=== PATIENT | male | born 1985 | race African-American/Black ===

== ENCOUNTER 2017-09-23 22:20 | Emergency (ER) | payer SELFPAY ==
[~2017-09-23] VITALS: Ht 175.3 cm; Wt 99.8 kg
[2017-09-23 22:40] VITALS: BP_SYST 143
[2017-09-23] MEDS ORDERED: ASPIRIN 81 MG TAB.CHEW PO ONE (22:45)
[2017-09-23 23:17] LABS: EOSINOPHILS # (AUTO) 0.1 K/uL (0.0-0.4); EOSINOPHILS % (AUTO) 0.9 % (0.0-4.0); HEMATOCRIT 39.2 % (36-54); HEMOGLOBIN 12.8 g/dL (14.0-18.0); LYMPHOCYTES # (AUTO) 0.4 K/uL (1.0-5.5); LYMPHOCYTES % (AUTO) 4.3 % (20.5-51.5); MEAN CORPUSCULAR HEMOGLOBIN 26 pg (27-31); MEAN CORPUSCULAR HGB CONC 33 % (32-36); MEAN CORPUSCULAR VOLUME 80 fL (79.0-98.0); MONOCYTES % (AUTO) 0.3 % (1.7-9.3); NEUTROPHILS # (AUTO) 7.7 K/uL (1.8-7.7); NEUTROPHILS % (AUTO) 94.5 % (40.0-70.0); PLATELET COUNT (AUTO) 450 K/uL (130-430); RED BLOOD CELL COUNT(AUTO) 4.88 MIL/uL (4.2-6.2); RED CELL DISTRIBUTION WIDTH 13.2 % (9.0-15.0); WHITE BLOOD COUNT (AUTO) 8.2 K/uL (4.8-10.8)
[2017-09-23 23:27] LABS: CALCIUM 9.1 mg/dL (8.4-11.0); CREATININE 0.97 mg/dL (0.55-1.30); POTASSIUM 4.3 mmol/L (3.5-5.1)
[2017-09-23 23:31] LABS: ALBUMIN 3.9 g/dL (3.4-4.8); TOTAL BILIRUBIN 0.2 mg/dL (0.0-1.0)
[2017-09-24] MEDS ORDERED: CYCL-10 PO (00:54)
[2017-09-24] MEDS ORDERED: TRAM50TA92 PO (00:54)
[2017-09-24] MEDS ORDERED: PRO40 PO (00:54)
[2017-09-24] MEDS ORDERED: KETO10TA2 PO (00:54)
[2017-09-24] MEDS ORDERED: METH750T3 PO (00:54)
[2017-09-24] MEDS ORDERED: ACET325T53 PO (00:54)
[2017-09-24] MEDS ORDERED: HYDR-4100 PO (00:54)
[2017-09-24] MEDS ORDERED: NAPR220C15 PO (00:54)
[2017-09-24] MEDS ORDERED: GABA800T PO (00:54)
[2017-09-24] MEDS ORDERED: BEN50 PO (00:54)
[2017-09-24] MEDS ORDERED: ALBU8.5H8 INH (00:54)
[2017-09-24] MEDS ORDERED: PERC10 PO (00:54)
[2017-09-24] MEDS ORDERED: MORP30TA PO (00:54)
[2017-09-24] MEDS ORDERED: IND25 PO (00:54)
[2017-09-24] MEDS ORDERED: ALBU2.5V7 INH (00:54)
[2017-09-24 01:01] LABS: BILIRUBIN,URINE NEGATIVE (NEGATIVE); BLOOD, URINE NEGATIVE (NEGATIVE); CLARITY/URINE CLEAR (CLEAR); COLOR,URINE YELLOW (YELLOW); GLUCOSE,URINE NEGATIVE (NEGATIVE); KETONES,URINE NEGATIVE (NEGATIVE); LEUKOCYTE ESTERASE ,URINE NEGATIVE (NEGATIVE); NITRITE, URINE NEGATIVE (NEGATIVE); PROTEIN URINE NEGATIVE (NEGATIVE)
[2017-09-24 01:11] LABS: BARBITURATE, URINE NEGATIVE (NEG <=200); BENZODIAZEPINE, URINE NEGATIVE (NEG <=150); CANNABINOID, URINE NEGATIVE (NEG <=50); COCAINE, URINE NEGATIVE (NEG <=150); METHAMPHETAMINES SCREEN,URINE NEGATIVE (NEG <=500); OPIATE, URINE POSITIVE (NEG <=100); PHENCYCLIDINE SCREEN,URINE NEGATIVE (NEG <=25); UR TRICYCLIC ANTIDEPRESSANTS NEGATIVE (NEG <=300); URINE AMPHETAMINE NEGATIVE (NEG <=500); URINE METHADONE NEGATIVE (NEG <=200); URINE OXYCODONE SCREEN NEGATIVE (NEG <=100); URINE PROPOXYPHENE SCREEN NEGATIVE (NEG <=300)
[2017-09-24] MEDS ORDERED: METH40VI IJ (01:15)
[2017-09-24] MEDS ORDERED: ADAL40KI SQ (01:15)
[2017-09-24] MEDS ORDERED: INSU100V32 SUBCUT (01:15)
[2017-09-24] MEDS ORDERED: DIVA500T4 PO (01:15)
[2017-09-24] MEDS ORDERED: WARF4TAB2 PO (01:15)
[2017-09-24] MEDS ORDERED: ESOM40CA PO (01:15)
[2017-09-24] MEDS ORDERED: AZIT500T3 PO (01:15)
[2017-09-24] MEDS ORDERED: HEPA500014 SUBCUT (01:15)
[2017-09-24 01:42] VITALS: BP_SYST 133
== END 2017-09-24 01:42 | disposition home or self-care (01) ==
LOC: SED 22:20
DX: R07.89 Other chest pain (principal); F43.10 Post-traumatic stress disorder, unspecified; F41.9 Anxiety disorder, unspecified; I25.2 Old myocardial infarction; Z79.899 Other long term (current) drug therapy
CPT/HCPCS: 36415; 71010; 80053; 80307; 81003; 83690-TC; 83880; 84484; 85025; 93005; 99285